=== PATIENT | male | born 1980 | race Caucasian/White ===

== ENCOUNTER 2018-02-13 04:38 | Emergency (ER) | payer OTHER ==
[2018-02-13 04:52] VITALS: RESP 20; O2SAT 98
--- NOTE | 2018-02-13 05:19 | C.PDOC ---
History Of Present Illness 29 year old male presents to the ED for evaluation of diffuse abdominal pain which began 3 days ago. Patient describes a cramping pain and discomfort which began after he ate some corn. Patient states he has been unable to move his bowels. He denies fever, chills, nausea, vomiting, dysuria, hematuria. Time Seen by Provider: 02/13/18 05:04 Chief Complaint (Nursing): Abdominal Pain History Per: Patient History/Exam Limitations: no limitations Onset/Duration Of Symptoms: Days (3) Current Symptoms Are (Timing): Still Present Location Of Pain/Discomfort: Diffuse Quality Of Discomfort: Cramping, "Pain" Associated Symptoms: Constipation. denies: Fever, Chills, Nausea, Vomiting, Urinary Symptoms Last Bowel Movement: Days Ago Additional History Per: Patient Past Medical History Reviewed: Historical Data, Nursing Documentation, Vital Signs Vital Signs: Last Vital Signs Temp 98.6 F 02/13/18 04:47 Pulse 85 02/13/18 04:47 Resp 20 02/13/18 04:47 BP 153/102 H 02/13/18 04:47 Pulse Ox 98 02/13/18 05:24 - Medical History PMH: No Chronic Diseases, Sleep Apnea Surgical History: No Surg Hx Family History: States: Unknown Family Hx - Social History Hx Alcohol Use: No Hx Substance Use: No - Immunization History Hx Tetanus Toxoid Vaccination: No Hx Influenza Vaccination: No Hx Pneumococcal Vaccination: No Review Of Systems Constitutional: Negative for: Fever, Chills Gastrointestinal: Positive for: Abdominal Pain. Negative for: Nausea, Vomiting Genitourinary: Negative for: Dysuria, Hematuria Physical Exam - Physical Exam Appears: Non-toxic, No Acute Distress Skin: Normal Color, Warm, Dry Head: Atraumatic, Normacephalic Eye(s): bilateral: Normal Inspection Oral Mucosa: Moist Neck: Supple Chest: Symmetrical, No Deformity, No Tenderness Cardiovascular: Rhythm Regular, No Murmur Respiratory: Normal Breath Sounds, No Rales, No Rhonchi, No Wheezing Gastrointestinal/Abdominal: Soft, No Tenderness, No Distention, No Guarding, No Rebound Back: No CVA Tenderness Extremity: Normal ROM, Capillary Refill (less than 2 seconds ) Neurological/Psych: Oriented x3, Normal Speech, Normal Cognition ED Course And Treatment - Laboratory Results Result Diagrams: 02/13/18 05:33 02/13/18 05:33 O2 Sat by Pulse Oximetry: 98 (on RA) Pulse Ox Interpretation: Normal Progress Note: Bloodwork and UA ordered and reviewed. Obstructive Series Abdomen XR. 0600am-- Pt with fecal impaction on XR, labs reviewed and wnl. Lactulose PO ordered. Pt is to follow up with pMD , stool softeners and high fiber diet. Return precautions d/w pt who understand and agreed to plan Reevaluation Time: 06:26 Reassessment Condition: Improved Disposition Counseled Patient/Family Regarding: Diagnosis, Need For Followup, Rx Given - Disposition Referrals: Randy Ace MD [Medical Doctor] - Disposition: HOME/ ROUTINE Disposition Time: 06:32 Condition: STABLE Additional Instructions: Please follow up with PMD High fiber diet Take miralax as directed Return to ER if worse Prescriptions: Polyethylene Glycol 3350 [Miralax] 17 gm PO DAILY #1 bottle Instructions: Constipation, Adult (DC) Forms: [employer] (Hungarian) - Clinical Impression Clinical Impression: Abdominal pain, Constipation - PA / ORDNANCE ARTIFICER / Resident Statement MD/DO has reviewed & agrees with the documentation as recorded. - Scribe Statement The provider has reviewed the documentation as recorded by the Scribe (Natalie Varner) All medical record entries made by the Scribe were at my direction and personally dictated by me. I have reviewed the chart and agree that the record accurately reflects my personal performance of the history, physical exam, medical decision making, and the department course for this patient. I have also personally directed, reviewed, and agree with the discharge instructions and disposition.
[2018-02-13 05:42] LABS: BASO % 0.7 % (0.0-2.0); EOS # 0.2 K/uL (0.0-0.7); EOS % 2.6 % (0.0-4.0); LYMPH # 1.7 K/uL (1.0-4.3); LYMPH % 28.1 % (20.0-40.0); MEAN CELL VOLUME 92.2 fL (80.0-94.0); MEAN CORPUSCULAR HEMOGLOBIN 31.3 pg (27.0-31.0); MEAN CORPUSCULAR HGB CONC 33.9 g/dL (33.0-37.0); MEAN PLATELET VOLUME 8.5 fL (7.2-11.7); MONO # 0.6 K/uL (0.0-0.8); MONO % 9.4 % (0.0-10.0); NEUT # 3.6 K/uL (1.8-7.0); NEUT % 59.2 % (50.0-75.0); NRBC % 0.2 % (0.0-2.0); RBC 4.8 Mil/uL (4.40-5.90); RED CELL DISTRIBUTION WIDTH 12.2 % (11.5-14.5); WHITE BLOOD COUNT 6.2 K/uL (4.8-10.8)
[2018-02-13 06:13] LABS: ALB/GLOB RATIO 1.2 (1.0-2.1); ALT/SGPT 40 U/L (21-72); AST/SGOT 28 U/L (17-59); BLOOD UREA NITROGEN 13 mg/dL (9-20); CALCIUM 8.5 mg/dl (8.6-10.4); GFR AFRICAN-AMERICAN > 60; GFR NON-AFRICAN AMERICAN > 60; LIPASE 75 U/L (23-300)
[2018-02-13 06:34] VITALS: BP 138/98; PULSE 90; TEMP 98
[2018-02-13 06:34] LABS: URINE BILIRUBIN NEGATIVE (NEGATIVE); URINE BLOOD 1+ (NEGATIVE); URINE CLARITY Clear (Clear); URINE COLOR Yellow (YELLOW); URINE GLUCOSE (UA) NORMAL (Normal); URINE LEUKOCYTE ESTERASE NEG Leu/uL (Negative); URINE PROTEIN NEGATIVE (NEGATIVE); URINE UROBILINOGEN NORMAL mg/dL (0.2-1.0)
--- NOTE | 2018-02-13 08:25 | RAD ---
PROCEDURE: Radiographs of the chest and abdomen (obstructive series) HISTORY: abd pain COMPARISON: No prior. TECHNIQUE: AP radiograph of the chest, with upright and supine radiographs of the abdomen. FINDINGS: CHEST: Lungs: Clear. Cardiovascular: Normal size heart. No pulmonary vascular congestion. Pleura: No pleural fluid. No pneumothorax. Other findings: None. ABDOMEN AND PELVIS: Bowel: Moderate stool retention. No evidence of mechanical obstruction. Free air: None. Bones: L4-5 mild facet hypertrophic arthrosis. Bilateral sacroiliac sclerotic arthrosis. Bilateral femoral head- neck morphology is possibly reflecting clinical femoral acetabular impingement syndrome. Other findings: None. IMPRESSION: No pulmonary infiltrate. Moderate stool retention. . No evidence of mechanical bowel obstruction. No free air. Osseous findings as above
== END 2018-02-13 06:50 | disposition home or self-care (01) ==
LOC: MERGE 04:38 → C.ER 04:38
DX: R10.9 Unspecified abdominal pain (principal); K59.00 Constipation, unspecified